=== PATIENT | female | born 1945 | race Hispanic/Latino ===

== ENCOUNTER 2019-03-05 09:27 | Outpatient (CLI) | payer MEDICARE ==
--- NOTE | 2019-03-13 09:16 | MMO ---
Bilateral MAMMO Bilat Screen [facility]. CLINICAL HISTORY: Patient is 73 years old and is seen for screening. The patient has no family history of breast cancer. The patient has no personal history of cancer. VIEWS: The views performed were: bilateral craniocaudal and bilateral mediolateral oblique. FILMS COMPARED: The present examination has been compared to prior imaging studies performed at [facility] on 02/06/2016, 02/18/2017 and 02/20/2018. This study has been interpreted with the assistance of computer-aided detection. MAMMOGRAM FINDINGS: There are scattered fibroglandular densities. There are no suspicious masses, calcifications or areas of architectural distortion. There are benign appearing calcifications in both breasts. There are no suspicious masses, suspicious calcifications, or new areas of architectural distortion. IMPRESSION: THERE IS NO MAMMOGRAPHIC EVIDENCE OF MALIGNANCY. A ROUTINE FOLLOW-UP MAMMOGRAM IN 1 YEAR IS RECOMMENDED. ACR BI-RADS Category 2 - Benign finding MAMMOGRAPHY NOTE: 1. A negative mammogram report should not delay a biopsy if a dominant of clinically suspicious mass is present. 2. Approximately 10% to 15% of breast cancers are not detected by mammography. 3. Adenosis and dense breasts may obscure an underlying neoplasm.
== END 2019-03-05 09:28 | disposition home or self-care (01) ==
LOC: SCSMAMMO 09:27
PROVIDERS: ATTEND Family Medicine
DX: Z12.31 Encounter for screening mammogram for malignant neoplasm of breast (principal)
CPT/HCPCS: 77067

== ENCOUNTER 2022-05-13 10:17 | Outpatient (CLI) | payer MEDICARE | END 2022-05-13 10:18 | disposition home or self-care (01) | LOC: BICMAMMO 10:17 | PROVIDERS: ATTEND Family Medicine | DX: Z12.31 Encounter for screening mammogram for malignant neoplasm of breast (principal) | CPT/HCPCS: 77063; 77067 ==

== ENCOUNTER 2024-01-31 12:15 | Outpatient (CLI) | payer MEDICARE | END 2024-01-31 12:16 | disposition home or self-care (01) | LOC: SCSRAD 12:15 | PROVIDERS: ATTEND Family Medicine | DX: R05.8 Other specified cough (principal) | CPT/HCPCS: 71046 ==

== ENCOUNTER 2025-03-02 16:44 | Inpatient (IN) | payer MEDICARE, OTHER ==
[2025-03-02] MEDS ORDERED: Propofol 1,000 MG/100 ML VIAL IV ONE (17:00)
[2025-03-02] MEDS ORDERED: niCARdipine 25 MG/10 ML SDV ONE (17:05)
[2025-03-02 17:07] LABS: #Basophils 0.03 10x3/uL (0.0-0.2); #Eosinophils 0.09 10x3/uL (0.0-0.7); %Basophils 0.5 % (0.0-1.0); %Eosinophils 1.5 % (0.0-10.0); %Monocytes 8.6 % (0.0-10.0); %Neutrophils 56.9 % (42.0-75.0); Hematocrit 34.8 % (36.0-47.0); Hemoglobin 11.6 g/dL (12.0-16.0); Mean Corpuscular HGB CONC 33.3 g/dL (32.0-36.0); Mean Corpuscular Hemoglobin 30.4 pg (27.0-31.0); Mean Corpuscular Volume 91.3 fL (78.0-98.0); Mean Platelet Volume 10.4 fL (7.4-10.4); Platelet Count 204 10x3/uL (130-400); RBC Distribution Width 13.4 % (11.5-14.5); Red Blood Cell (RBC) Count 3.81 mill/uL (4.20-5.40); White Blood Cell (WBC) Count 5.81 10x3/uL (4.8-10.8)
[2025-03-02] MEDS ORDERED: Sodium Chloride 3% 250 ML IVPB SCH (17:15)
[2025-03-02 17:18] LABS: Analyzer IN Cardio ER; Base Excess (BEa) -0.9 mEq/L (-2.0 to +3.0); CO2 Tension 31.2 mmHg (35.0-45.0); Calcium, Ionized (arterial) 1.22 mmol/L (1.12-1.30); Carboxyhemoglobin (COHb) 0.3 gm% (0.0-3.0); Hematocrit-ABG 36 % (36.0-47.0); Hemoglobin (Hb) 12.1 g/dL (12.0-16.0); O2 Tension (PaO2), arterial 395.3 mmHg (> 70.0); Potassium - ABG Lab 4.13 mmol/L (3.70-5.30); Puncture Site Right Radial artery; pH, Arterial 7.467 (7.35-7.45)
[2025-03-02 17:21] LABS: INR-International Normal Ratio 1.1; PTT 30.4 sec (22.9-36.1); Prothrombin Time 14.2 sec (12.0-14.7)
[2025-03-02 17:24] LABS: ALT (SGPT) 20 U/L (Less than 34); AST (SGOT) 38 U/L (11-34); Albumin 4.4 g/dL (3.1-4.5); Alkaline Phosphatase 67 U/L (40-110); Anion Gap 16 mmol/L (10-20); BUN (Urea Nitrogen) 20 mg/dL (9.8-20.1); Bilirubin, Total 0.7 mg/dL (0.3-1.2); Calc. Creatinine Clearance 0 mL/min (70-130); Carbon Dioxide 23 mmol/L (23-31); Chloride 105 mmol/L (98-107); Estimated GFR 73; Globulin 3.4 g/dL (2.4-3.5); Glucose 162 mg/dL (83-110); Protein, Total 7.8 g/dL (5.8-8.1); Sodium 140 mmol/L (136-145)
[2025-03-02 17:29] LABS: Bacteria/HPF 4+ HPF (None Seen); Bilirubin Negative (Negative); Blood, Urine Negative (Negative); CAUTI Indications for Culture Alt mental st,lethar; Clarity Clear (Clear); Glucose, Urine (Dipstick) 30 mg/dL (Negative); Ketone, Urine Negative (Negative); Leukocyte Negative Leu/uL (Negative); Nitrite 1+ (Negative); Protein, Urine (Dipstick) 50 mg/dL (Neg-Trace); RBC/HPF 0-3 HPF (0-3); Specific Gravity, Urine 1.011 (1.002-1.036); Squamous Epithelial 0-3 HPF (0-3); Urobilinogen Normal mg/dL (Less than 2); pH, Urine 5.5 (5.0-9.0)
[2025-03-02 17:33] LABS: Urine Culture Reflex No No
[2025-03-02] MEDS ORDERED: Ventilator Sedation Protocol 1 EACH FS SCH (17:35)
[2025-03-02] MEDS ORDERED: Midazolam HCl 2 mg/2 ml Vial SLOW IVP PRN (17:39)
[2025-03-02] MEDS ORDERED: fentaNYL Citrate-0.9 % NaCl/PF 100 ML IV SCH (17:45)
[2025-03-02] MEDS ORDERED: Propofol BOLUS 1,000 MG/100 ML VIAL IV PRN (17:45)
[2025-03-02] MEDS ORDERED: DISCONTINUE PREVIOUS NARCOTIC PAIN MEDICATIONS AND BENZODIAZEPINES FS SCH (17:45)
[2025-03-02] MEDS ORDERED: niCARdipine 25 MG in Sodium Chloride 0.9% 250 ML 250 ML IVPB SCH (17:45)
[2025-03-02] MEDS ORDERED: Fentanyl BOLUS 100 ML IVPB PRN (17:45)
[2025-03-02] MEDS ORDERED: Morphine 4 MG/ML VIAL SLOW IVP PRN (17:45)
[2025-03-02] MEDS: niCARdipine 25 MG in Sodium Chloride 0.9% 250 ML 250 ML IVPB SCH (20:19)
[2025-03-02] MEDS: Mupirocin 1 GM TUBE NASAL DECOLONIZATION NASAL SCH (20:41)
[2025-03-02] MEDS: Sodium Chloride 3% 250 ML IVPB SCH (21:29)
[2025-03-02] MEDS ORDERED: Dextrose 5% in Water 1,000 ML IV PRN (23:54)
[2025-03-02] MEDS ORDERED: Insulin Lispro 100 UNIT/ML 10 ML VIAL SC PRN (23:54)
[2025-03-02] MEDS ORDERED: Glucagon 1 MG/ML KIT IM PRN (23:54)
[2025-03-02] MEDS ORDERED: Dextrose 50% Abboject 50 ML SYRINGE SLOW IVP PRN (23:54)
[2025-03-03] MEDS: Propofol 1,000 MG/100 ML VIAL IV PRN (02:00)
[2025-03-03 04:08] LABS: #Basophils 0.04 10x3/uL (0.0-0.2); #Eosinophils 0.05 10x3/uL (0.0-0.7); #Monocytes 0.41 10x3/uL (0.11-0.59); #Neutrophils 9.63 10x3/uL (1.40-6.50); %Basophils 0.4 % (0.0-1.0); %Eosinophils 0.5 % (0.0-10.0); %Lymphocytes 4.7 % (21.0-51.0); %Monocytes 3.8 % (0.0-10.0); %Neutrophils 90.3 % (42.0-75.0); Hematocrit 31.4 % (36.0-47.0); Hemoglobin 10.4 g/dL (12.0-16.0); Mean Corpuscular HGB CONC 33.1 g/dL (32.0-36.0); Mean Corpuscular Hemoglobin 30.7 pg (27.0-31.0); Mean Corpuscular Volume 92.6 fL (78.0-98.0); Mean Platelet Volume 10.8 fL (7.4-10.4); Platelet Count 176 10x3/uL (130-400); RBC Distribution Width 13.5 % (11.5-14.5); Red Blood Cell (RBC) Count 3.39 mill/uL (4.20-5.40); White Blood Cell (WBC) Count 10.66 10x3/uL (4.8-10.8)
[2025-03-03 04:35] LABS: Hemoglobin A1c 6.9 % (4.0-6.0)
[2025-03-03 04:58] LABS: Anion Gap 13 mmol/L (10-20); BUN (Urea Nitrogen) 18 mg/dL (9.8-20.1); Calc. Creatinine Clearance 65 mL/min (70-130); Carbon Dioxide 21 mmol/L (23-31); Cardiac Risk 4.3 (Less than 4.5); Chloride 109 mmol/L (98-107); Cholesterol 150 mg/dl (< 200 Desired); Estimated GFR 77; Glucose 198 mg/dL (83-110); HDL Cholesterol 35 mg/dL (>60 Neg Risk); LDL Cholesterol, Calculated 41 mg/dL; Potassium 2.6 mmol/L (3.5-5.1); Sodium 140 mmol/L (136-145); Triglycerides 368 mg/dL (Less than 150)
[2025-03-03] MEDS: POTASSIUM CHLORIDE 20 MEQ IVPB SCH (05:33)
[2025-03-03] MEDS: Insulin Lispro 100 UNIT/ML 10 ML VIAL SC PRN (05:33)
[2025-03-03] MEDS: Potassium Chloride 40 MEQ in Premix 1 BAG IVPB SCH (07:21)
[2025-03-03] MEDS: Famotidine/PF 20 mg/2ml Vial SLOW IVP SCH (07:59)
[2025-03-03] MEDS ORDERED: Electrolyte Replacement Protocol 1 EACH FS SCH (08:15)
[2025-03-03] MEDS: Potassium Chloride 20 MEQ in Premix 1 BAG IVPB SCH (10:50)
[2025-03-03] MEDS ORDERED: hydrALAZINE 20 MG/ML VIAL SLOW IVP PRN (13:34)
[2025-03-03] MEDS: Lisinopril 10 MG TAB PER TUBE SCH (13:47)
[2025-03-03] MEDS: Labetalol HCl 100 MG/20 ML VIAL SLOW IVP PRN (15:33)
[2025-03-03 21:03] LABS: ALT (SGPT) 24 U/L (Less than 34); AST (SGOT) 51 U/L (11-34); Albumin 3.3 g/dL (3.1-4.5); Alkaline Phosphatase 57 U/L (40-110); Anion Gap 13 mmol/L (10-20); BUN (Urea Nitrogen) 20 mg/dL (9.8-20.1); Bilirubin, Total 0.8 mg/dL (0.3-1.2); Calc. Creatinine Clearance 59 mL/min (70-130); Calcium 8.2 mg/dL (7.8-10.44); Carbon Dioxide 18 mmol/L (23-31); Chloride 114 mmol/L (98-107); Estimated GFR 69; Globulin 2.8 g/dL (2.4-3.5); Glucose 178 mg/dL (83-110); Potassium 4.1 mmol/L (3.5-5.1); Protein, Total 6.1 g/dL (5.8-8.1); Sodium 141 mmol/L (136-145)
[2025-03-04 04:24] LABS: #Basophils Less than 0.03 10x3/uL (0.0-0.2); #Eosinophils Less than 0.03 10x3/uL (0.0-0.7); #Monocytes 0.57 10x3/uL (0.11-0.59); #Neutrophils 6.96 10x3/uL (1.40-6.50); %Basophils 0.2 % (0.0-1.0); %Eosinophils 0.1 % (0.0-10.0); %Lymphocytes 9.4 % (21.0-51.0); %Monocytes 6.8 % (0.0-10.0); %Neutrophils 83.1 % (42.0-75.0); Hematocrit 30.7 % (36.0-47.0); Hemoglobin 10.3 g/dL (12.0-16.0); Mean Corpuscular HGB CONC 33.6 g/dL (32.0-36.0); Mean Corpuscular Hemoglobin 31.2 pg (27.0-31.0); Mean Platelet Volume 10.8 fL (7.4-10.4); Platelet Count 168 10x3/uL (130-400); RBC Distribution Width 13.8 % (11.5-14.5); White Blood Cell (WBC) Count 8.38 10x3/uL (4.8-10.8)
[2025-03-04 05:10] LABS: Anion Gap 11 mmol/L (10-20); BUN (Urea Nitrogen) 22 mg/dL (9.8-20.1); Calc. Creatinine Clearance 56 mL/min (70-130); Calcium 8.1 mg/dL (7.8-10.44); Carbon Dioxide 17 mmol/L (23-31); Chloride 118 mmol/L (98-107); Estimated GFR 65; Glucose 204 mg/dL (83-110); Magnesium 1.6 mg/dL (1.6-2.6); Potassium 3.8 mmol/L (3.5-5.1); Sodium 142 mmol/L (136-145)
[2025-03-04] MEDS: Magnesium 2 GM/50 ML(in water) 2 GM in Premix 1 BAG IVPB SCH (06:55)
[2025-03-04] MEDS: Lisinopril 10 MG TAB PER TUBE SCH (08:05)
[2025-03-04] MEDS: niCARdipine 50 MG, Admixture Fee 1 EACH in Sodium Chloride 0.9% 250 ML 230 ML IV SCH (09:30)
[2025-03-04] MEDS: Labetalol HCl 100 MG TAB PO SCH (10:59)
[2025-03-04 11:37] VITALS: BMI 30.8
[2025-03-04] MEDS: Labetalol HCl 100 MG TAB PER TUBE SCH (15:00)
[2025-03-04 15:01] VITALS: BP 133/49
[2025-03-04 16:21] VITALS: TEMP 98
[2025-03-04] MEDS: Lorazepam 2 MG/ML VIAL SLOW IVP PRN (19:22)
[2025-03-04] MEDS: Glycopyrrolate 0.4 MG/ 2 ML VIAL SLOW IVP PRN (19:22)
[2025-03-04] MEDS: Morphine 4 MG/ML VIAL SLOW IVP PRN (19:22)
== END 2025-03-04 22:50 | disposition expired | DRG 64 ==
LOC: ERS 16:44 → CCU 18:08 → T4-A 03-04 22:42
PROVIDERS: ADMIT Internal Medicine; ATTEND Emergency Medicine
DX: I62.9 Nontraumatic intracranial hemorrhage, unspecified (principal); G93.6 Cerebral edema; J96.01 Acute respiratory failure with hypoxia; I16.1 Hypertensive emergency; G93.40 Encephalopathy, unspecified; I69.351 Hemiplegia and hemiparesis following cerebral infarction affecting right dominant side; R29.721 NIHSS score 21; I25.10 Atherosclerotic heart disease of native coronary artery without angina pectoris; I10 Essential (primary) hypertension; E11.9 Type 2 diabetes mellitus without complications; Z95.5 Presence of coronary angioplasty implant and graft; Z51.5 Encounter for palliative care; I25.2 Old myocardial infarction
CPT/HCPCS: 31500; 36415; 36416; 36430; 36600; 43752; 51702; 70450; 71045; 80048; 80053; 80061; 81001; 82805; 83036; 83735; 84484; 85025; 85610; 85730; 86850; 86900; 86901; 87077; 87086; 87186; 93005; 94002; 94003; 94760; 96374; J1815; J2060; J2270; J2704; J3475; J3480; J3490; J7050; J7131; P9035